=== PATIENT | female | born 1955 | race Caucasian/White ===

== ENCOUNTER → 2016-08-22 | Outpatient (CLI) | payer OTHER ==
[~2016-08-22] MED LIST: ATIVAN0.5 MG PO; BUSPAR15 MG PO; MOTRIN800 MG PO; NITROSTAT0.4 MG SL; SINGULAIR10 MG PO; TYLENOL EXTRA500 MG PO; ZOLOFT50 MG PO
== END | disposition home or self-care (01) ==
LOC: NUC 09:56
DX: R11.2 Nausea with vomiting, unspecified (principal); R10.9 Unspecified abdominal pain
CPT/HCPCS: 78227; A9537; J2805